=== PATIENT | male | born 1950 | race African-American/Black ===

== ENCOUNTER 2017-06-30 10:44 | Emergency (ER) | payer OTHER ==
[~2017-06-30] VITALS: Ht 175.3 cm; Wt 150.0 kg
[2017-06-30] MEDS ORDERED: MORPHINE SULFATE 10 MG/ML CPJ IM ONE (11:45)
[2017-06-30 18:35] VITALS: BP 167/92
== END 2017-06-30 19:11 | disposition home or self-care (01) ==
LOC: ER 11:54
DX: M54.5 Low back pain (principal); J44.9 Chronic obstructive pulmonary disease, unspecified; F17.200 Nicotine dependence, unspecified, uncomplicated; W19.XXXA Unspecified fall, initial encounter; Y93.89 Activity, other specified; Y92.89 Other specified places as the place of occurrence of the external cause; Y99.8 Other external cause status
CPT/HCPCS: 72100; 73521; 73562; 93970; 96372; 99284; J2270